=== PATIENT | male | born 1990 | race Caucasian/White ===

== ENCOUNTER 2018-08-31 21:25 | Emergency (ER) | payer SELFPAY ==
[2018-08-31 21:29] VITALS: BP 162/93; PULSE 106; RESP 32; TEMP 36.2; O2SAT 93; BMI 41.7
--- NOTE | 2018-08-31 21:37 | ED.RN ---
CALLED FOR EKG PER RN REQUEST, PULLED OLD EKGS FOR
--- NOTE | 2018-08-31 21:45 | EKG12_ITS ---
Test Reason : SOB Blood Pressure : / mmHG Vent. Rate : 078 BPM Atrial Rate : 078 BPM P-R Int : 128 ms QRS Dur : 094 ms QT Int : 378 ms P-R-T Axes : 049 087 054 degrees QTc Int : 430 ms Normal sinus rhythm Normal ECG Confirmed by KAMILAH SAMS, LINH ([id number]), editor producer TYRA BRAXTON ([id number]) on 09/02/2018 3:29:14 PM Referred By: Confirmed By:LINH TRIANA MD
[2018-08-31 21:52] VITALS: PULSE 79; RESP 18
[2018-08-31] MEDS: Ipratropium/Albuterol Sulfate 3 ML AMPUL.NEB INHALATION (21:54)
[2018-08-31] MEDS: Albuterol 2.5 MG/3 ML VIAL.NEB. INHALATION ×4 (21:54→23:29)
[2018-08-31 22:00] VITALS: PULSE 80; RESP 16
[2018-08-31 22:01] VITALS: O2SAT 100
--- NOTE | 2018-08-31 22:10 | RAD_ITS ---
STUDY: X-RAY CHEST REASON FOR EXAM: Male, 27 years old. Dyspnea, cough TECHNIQUE: Frontal and lateral views COMPARISON: None. FINDINGS: The lungs are clear and expanded. There is no demonstrated pleural abnormality. Normal size heart. Normal mediastinum and pee. Normal visualized pulmonary arteries. Normal visualized aortic arch and descending thoracic aorta. Normal visualized thoracic spine. Normal visualized ribs, clavicles, and shoulders. There is no demonstrated abnormality of the visualized soft tissue structures of the upper abdomen. RAD/Chest PA and Lateral IMPRESSION: Normal x-ray examination of the chest. Electronically Signed: Jair Ortiz DO at 22:29 EST Tel [phone], Service support ,
--- NOTE | 2018-08-31 23:24 | ED.VISSUMM ---
- ER Visit Summary Date of Service: 08/31/18 Chief Complaint: Shortness of breath History of Present Illness: The patient is a 27 M who states this morning he began to have coughing fits. He is a smoker. He does not have a history of asthma or COPD. He also has a history of bipolar disorder. No significant rhinorrhea or fevers. He states that suddenly tonight he went to a coughing fit at night just cannot catch his breath. Physical Examination: Afebrile patient is tachycardic and tachypneic. Pulse ox 93% on room air Gen: Well-nourished well-developed Head: Normocephalic atraumatic Eyes: Perrl EOMI ENT: TMs clear no rhinorrhea moist mucous membranes Neck: Supple no lymphadenopathy no JVD nontender CVS: Regular rate rhythm no murmurs normal S1-S2 Respiratory: Hyperventilating. Diminished breath sounds bilaterally chest nontender Abdomen: Soft nontender nondistended normal bowel sounds no masses Back: Nontender Extremity: Nontender no edema Skin: Normal color no rash Neuro: alert orientated ?3 CN II-XII intact normal strength sensation reflexes gait cerebellar Psych: Anxious Test Results: Chest x-ray negative. EKG normal sinus rhythm at a rate 78 Emergency Department Course and Treatment: Patient received breathing treatments and prednisone. His chest x-ray is clear. Repeat lung auscultation shows significantly improved aeration. There is faint expiratory wheeze. I am going to prescribe albuterol he has a nebulizer system that belongs to his significant other. Also write for some prednisone. Early follow-up return if worsening or concerns Impression: 1. Acute bronchospasm This note was generated with [employer] dictation software. It may contain incorrect words, spelling, and punctuation that were not noted in review of the chart prior to signing ED Disposition - Plan for ED Patient: Disposition: Home or Assisted Living Chief Complaint: Shortness of Breath Instructions: ED Wheezing Prescriptions: Albuterol Aerosols [Ventolin Aerosols] 2.5 mg INHALATION Q4H PRN #25 vial Albuterol Inhaler [Ventolin Hfa] 2 puff INHALATION Q4H PRN PRN #1 inhaler PRN Reason: Wheezing Prednisone [Deltasone] 60 mg PO DAILY #15 tab Referrals: Flory Camarillo MD [STAFF PHYSICIAN] - 3-5 Days if not improving
[2018-08-31 23:30] VITALS: PULSE 78; RESP 18
[2018-09-01] MEDS: predniSONE 20 MG Tablet 60 MG PO (00:12)
[2018-09-01 00:14] VITALS: PULSE 96; O2SAT 96
== END 2018-09-01 00:19 | disposition home or self-care (01) ==
PROVIDERS: Emergency Provider Emergency Medicine
DX: J98.01 Acute bronchospasm (principal); F17.200 Nicotine dependence, unspecified, uncomplicated
CPT/HCPCS: 71046; 93005; 94640; 99283; A4216

== ENCOUNTER 2018-11-25 20:37 | Emergency (ER) | payer MEDICAID, SELFPAY ==
[2018-11-25 20:38] VITALS: BP 143/84; PULSE 87; RESP 18; TEMP 36.6; O2SAT 96; BMI 37.5
--- NOTE | 2018-11-25 20:40 | RAD_ITS ---
STUDY: X-RAY - RIGHT KNEE REASON FOR EXAM: Male, 27 years old. Pain TECHNIQUE: 4 view(s) of the knee. COMPARISON: None. FINDINGS: There is no evidence of fracture or dislocation. There are no significant degenerative changes. There are no radiodense foreign bodies. RAD/Knee 4 or More Views IMPRESSION: No fracture or dislocation. Electronically Signed: Charan Matos, at 21:50 EDT Tel , Service support ,
--- NOTE | 2018-11-25 22:11 | ED.VISSUMM ---
- ER Visit Summary Date of Service: 11/25/18 Chief Complaint: Right knee pain History of Present Illness: The patient is a 27 M nontraumatic right knee pain after waking from a nap today. Started working for the past 3 days on his feet. No climbing her steps. Denies history of similar. No medicines taken. No history of gastric ulcers or kidney injury. Reports feels like bone is grinding. Physical Examination: General: Alert and oriented ?3, no acute distress HEENT: Normocephalic, atraumatic. Moist mucosa membranes Neck: supple, nontender. Cardiovascular: Regular rate and rhythm, no murmurs Respiratory: Normal breath sounds, symmetric, no distress Abdomen: Soft, nontender, nondistended Extremities: no edema, pulses intact ?4. Right lower extremity: Negative varus and valgus of the knee. Knee extensor intact. Positive patellar grind. Neuro: no focal neurological deficits. Test Results: Right knee x-ray: No acute process Emergency Department Course and Treatment: Knee x-ray negative. Discussed patellofemoral syndrome with positive patellar grind. He started on ibuprofen. Follow-up given as an outpatient with PCP. Treatment Plan: [] Disposition: Discharge Impression: Right knee pain with patellofemoral syndrome This note was generated with [employer] dictation software. It may contain incorrect words, spelling, and punctuation that were not noted in review of the chart prior to signing ED Disposition - Plan for ED Patient: Disposition: Home or Assisted Living Diagnosis: Right knee pain, Patellofemoral syndrome of right knee Instructions: ED Knee Pain UKO Prescriptions: Ibuprofen 600 mg PO Q6H PRN PRN #20 tablet PRN Reason: Pain Referrals: Care Physician,No Primary [Primary Care Provider] - Brittney Mcclendon MD [COURTESY STAFF PHYSICIAN] - 5-7 Days Additional Instructions: Right knee pain with concerns of patellofemoral syndrome. Use ibuprofen as needed. Follow-up as an outpatient.
--- NOTE | 2018-11-25 22:15 | ED.DCSUM_ITS ---
- ER Visit Summary Date of Service: 11/25/18 Chief Complaint: Right knee pain History of Present Illness: The patient is a 27 M nontraumatic right knee pain after waking from a nap today. Started working for the past 3 days on his feet. No climbing her steps. Denies history of similar. No medicines taken. No history of gastric ulcers or kidney injury. Reports feels like bone is grinding. Physical Examination: General: Alert and oriented ?3, no acute distress HEENT: Normocephalic, atraumatic. Moist mucosa membranes Neck: supple, nontender. Cardiovascular: Regular rate and rhythm, no murmurs Respiratory: Normal breath sounds, symmetric, no distress Abdomen: Soft, nontender, nondistended Extremities: no edema, pulses intact ?4. Right lower extremity: Negative varus and valgus of the knee. Knee extensor intact. Positive patellar grind. Neuro: no focal neurological deficits. Test Results: Right knee x-ray: No acute process Emergency Department Course and Treatment: Knee x-ray negative. Discussed pat ellofemoral syndrome with positive patellar grind. He started on ibuprofen. Follow-up given as an outpatient with PCP. Treatment Plan: [] Disposition: Discharge Impression: Right knee pain with patellofemoral syndrome This note was generated with [employer] dictation software. It may contain incorrect words, spelling, and punctuation that were not noted in review of the chart prior to signing ED Disposition - Plan for ED Patient: Disposition: Home or Assisted Living Diagnosis: Right knee pain, Patellofemoral syndrome of right knee Instructions: ED Knee Pain UKO Prescriptions: Ibuprofen 600 mg PO Q6H PRN PRN #20 tablet PRN Reason: Pain Referrals: Care Physician,No Primary [Primary Care Provider] - Brittney cMclendon MD [COURTESY STAFF PHYSICIAN] - 5-7 Days Additional Instructions: Right knee pain with concerns of patellofemoral syndrome. Use ibuprofen as needed. Follow-up as an outpatient.
[2018-11-25] MEDS: Ibuprofen 600 MG Tablet PO (22:23)
[2018-11-25 22:29] VITALS: PULSE 72; RESP 16; O2SAT 97
== END 2018-11-25 22:31 | disposition home or self-care (01) ==
PROVIDERS: Emergency Provider Emergency Medicine
DX: M25.561 Pain in right knee (principal); M22.2X1 Patellofemoral disorders, right knee
CPT/HCPCS: 73564; 99283

== ENCOUNTER 2018-11-30 04:55 | Emergency (ER) | payer MEDICAID, SELFPAY ==
[2018-11-30 04:56] VITALS: BP 159/90; PULSE 79; RESP 16; TEMP 36.7; O2SAT 98; BMI 40.8
--- NOTE | 2018-11-30 05:27 | RAD_ITS ---
STUDY: X-RAY - MANDIBLE (COMPLETE) REASON FOR EXAM: Male, 27 years old. Pain TECHNIQUE: 5 view(s) of the mandible were obtained. COMPARISON: None. FINDINGS: Normal mandible. Normal visualized right temporomandibular joint. Normal visualized left temporomandibular joint. The remaining visualized osseous structures are normal. The soft tissue structures are unremarkable. RAD/Mandible Min 4 Views IMPRESSION: Normal x-ray examination of the mandible. Electronically Signed: Salvador Basilio MD at 6:00 EDT , Service support ,
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
--- NOTE | 2018-11-30 05:29 | ED.DEP ---
ED Disposition - Plan for ED Patient: Disposition: Home or Assisted Living Instructions: ED Contusion Face Referrals: Alex Roldan MD [STAFF PHYSICIAN] - 1 Week if not improving Additional Instructions: Ice to jaw to decrease pain and swelling. Motrin for pain and inflammation. If not improving follow-up.
== END 2018-11-30 05:58 | disposition home or self-care (01) ==
PROVIDERS: Emergency Provider Emergency Medicine
DX: S00.531A Contusion of lip, initial encounter (principal); S00.83XA Contusion of other part of head, initial encounter; Z72.0 Tobacco use; W50.0XXA Accidental hit or strike by another person, initial encounter; Y93.89 Activity, other specified; Y92.009 Unspecified place in unspecified non-institutional (private) residence as the place of occurrence of the external cause; Y99.8 Other external cause status
CPT/HCPCS: 70110; 99282

== ENCOUNTER 2018-12-01 12:13 | Emergency (ER) | payer MEDICAID, SELFPAY ==
[2018-11-30 04:56] VITALS: BMI 40.8
[2018-12-01] VITALS (7 sets, daily range): BP systolic 128–191; BP diastolic 86–100; PULSE 93–99; RESP 16–18; TEMP 36.3; O2SAT 96–100; BMI 38.5
[2018-12-01] MEDS: MethylPREDNISolone 125 MG/2 ML Vial IV (12:42)
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
--- NOTE | 2018-12-01 13:49 | ED.DEP ---
ED Disposition - Plan for ED Patient: Instructions: ED Drug React Allergic Prescriptions: Epi Pen (for allergic rxn) 0.3 mg IM X1 #2 syringe Prednisone 10 mg PO UD #33 tab Famotidine [Pepcid] 20 mg PO BID #10 tab DiphenhydrAMINE [Benadryl] 25 mg PO TID 5 Days #15 cap Clindamycin [Cleocin] 300 mg PO 4X/DAY #80 cap Referrals: Tierney Mcdaniels [NON-STAFF] -
== END 2018-12-01 16:21 | disposition home or self-care (01) ==
PROVIDERS: Emergency Provider Emergency Medicine
DX: T88.6XXA Anaphylactic reaction due to adverse effect of correct drug or medicament properly administered, initial encounter (principal); T37.0X5A Adverse effect of sulfonamides, initial encounter; Z72.0 Tobacco use
CPT/HCPCS: 96372; 96374; 96375; 99285; J7030; A4216; J3490

== ENCOUNTER 2018-12-05 04:12 | Emergency (ER) | payer MEDICAID, SELFPAY ==
[2018-12-01 12:13] VITALS: BMI 38.5
[2018-12-05 04:13] VITALS: BP 181/93; PULSE 78; RESP 16; TEMP 36.9; O2SAT 98; BMI 40.2
[2018-12-05] MEDS: 0.9% Normal Saline 1,000 ML 1000 ML IV (04:39)
[2018-12-05] MEDS: Ketorolac 30 MG/ML Syringe IV (04:39)
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
[2018-12-05] MEDS: Penicillin Vk 250 MG Tablet 500 MG PO (05:32)
[2018-12-05 05:36] VITALS: BP 144/86; PULSE 87; RESP 20; O2SAT 97
== END 2018-12-05 05:37 | disposition home or self-care (01) ==
PROVIDERS: Emergency Provider Emergency Medicine
DX: J02.9 Acute pharyngitis, unspecified (principal); Z72.0 Tobacco use
CPT/HCPCS: 87070; 87880; 96361; 96374; 96375; 99284; J7030; A4216

== ENCOUNTER 2018-12-07 22:47 | Emergency (ER) | payer MEDICAID, SELFPAY ==
[2018-12-07 22:47] VITALS: BP 212/113; PULSE 102; RESP 18; TEMP 36.7; O2SAT 97; BMI 38.5
--- NOTE | 2018-12-07 22:58 | ED.VIS.GEN ---
History of Present Illness Chief Complaint: Headache Informant: Patient, Significant Other Onset: Today Context: Sudden Onset - Headache noted upon awakening this morning Timing: Continuous Quality: Pain Location: Central forehead to the occiput Current Severity: Moderate Maximum Severity: Severe Worsened by: Right Relieved by: Nothing Associated Symptoms: Nausea vomiting, recent diagnosis strep exudative tonsillitis Narrative: Patient is a 27-year-old male who presents with headache that he noted upon awakening. He does report nausea vomiting. He does report sore throat. He denies rash. He states the back of his head hurts. He was seen on December 04 and diagnosed with strep pharyngitis. He was treated with antibiotics. He states he is compliant with the antibiotics. He has no history of migraine headaches. - Past Medical History (1) Bipolar 1 disorder Status: Acute (2) Polysubstance (including opioids) dependence w/o physiol dependence Status: Acute Past Medical History - Allergies and Home Meds Allergies/Adverse Reactions: Allergies sulfamethoxazole [From Bactrim] Allergy (Verified 12/07/18 22:50) Hives trimethoprim [From Bactrim] Allergy (Verified 12/07/18 22:50) Hives iodine Adverse Reaction (Verified 12/07/18 22:50) Rash Primary Care Physician: Care Physician,No Primary [NON-STAFF] - Prior records reviewed: Yes - December 04 visit and diagnosis Surgical History: no surgical history Lives: Spouse/ Significant Other Smoking Status: Current every day smoker Drugs: - - Per old records polysubstance abuse Review of Systems General: Reports: Chills, Fever, Malaise, Subjective, Sweats Eyes: Denies: Visual changes - bilaterally, Blurred Vision - bilaterally, Diplopia ENT: Reports: Sore throat. Denies: Bilateral ear pain, Rhinorrhea Cardiovascular: Denies: Chest pain, Palpitations Respiratory: Denies: Dyspnea, Cough, Dyspnea on exertion Gastrointestinal: Reports: Nausea, Vomiting. Denies: Abdominal pain, Diarrhea, Melena, Hematochezia Genitourinary: Denies: Dysuria, Hematuria, Frequency Musculoskeletal: Denies: Back pain, Extremity Pain Skin: Denies: Rash, Wounds Neurological: Denies: Headache, Weakness, Numbness Hematologic: Denies: Easy bruising, Easy bleeding Allergy: Denies: Uticaria, Swelling of the mouth Physical Exam Vital Signs/Narrative: Vital Signs Temp Pulse Resp BP Pulse Ox 12/07/18 22:47 98.1 F 102 H 18 212/113 H 97 Inital Vital Signs reviewed: Yes General: Well nourished, Well developed, Obese, - - patient lying on the cot with the room lights off. Head: Normocephalic, Atraumatic Eyes: Perrl, EOMI, - - Funduscopic exam reveals normal cup-to-disc ratio. There is no papilledema. Unable to determine if he has venous pulsation.. Negative for: Pale conjunctiva, Scleral icterus ENT: Moist mucous membranes, No rhinorrhea, TM's clear, - - Exudative tonsillitis Neck: Supple, Nontender, No JVD. Negative for: No lymphadenopathy Cardiovascular: Regular rate, Regular rhythm, No murmurs, Normal S1, Normal S2 Respiratory: No distress, CTA bilaterally, Chest nontender Abdomen: Soft, Nontender, Nondistended, Normal bowel sounds Back: Nontender, Normal Inspection Extremities: Nontender, No edema Skin: Normal color, No rash. Negative for: Cyanosis, Diaphoresis, Jaundice, Rash Neurological: Alert, Oriented x3, Cranial nerves II-XII grossly intact, Normal Strength, Normal Sensation, Normal DTR - DTRs 2+ upper and lower extremity and symmetric, Normal Gait Psychological: Normal affect Diagnostic/Tx/Re-eval - Medical Decision Making Nurse verifying blood pressure. If blood pressure is elevated will obtain CT of the head and blood work. Will medicate with IV Toradol, Benadryl and Reglan. Patient's blood pressure has improved but is still elevated. He is presently asleep with a blood pressure of 162/111. He was started on antihypertensive medication. He has an appointment to be seen by Dr. De Jesus later this morning. ED Disposition - Plan for ED Patient: Disposition: Home or Assisted Living Diagnosis: Hypertension new diagnosis, Cephalgia Instructions: ED Cephalgia Unspecified, ED Hypertension New Begin Tx Prescriptions: Lisinopril [Prinivil] 10 mg PO DAILY #30 tab Referrals: Care Physician,No Primary [NON-STAFF] - Ang De Jesus MD [Primary Care Provider] - Keep Valeria appointment
[2018-12-07 23:06] VITALS: BP 176/103
[2018-12-07] MEDS: 0.9% Normal Saline 1,000 ML 999 ML IV (23:10)
[2018-12-07] MEDS: DiphenhydrAMINE 50 MG/ML Syringe 25 MG IV (23:10)
[2018-12-07] MEDS: Ketorolac 30 MG/ML Syringe 15 MG IV (23:11)
[2018-12-07] MEDS: Metoclopramide 10 MG/2 ML Vial IV (23:11)
[2018-12-07 23:17] VITALS: BP 164/110
[2018-12-08] MEDS: Lisinopril 10 MG Tablet PO (00:45)
[2018-12-08 00:48] VITALS: BP 163/106; PULSE 84; RESP 16; O2SAT 94
== END 2018-12-08 00:48 | disposition home or self-care (01) ==
PROVIDERS: Emergency Provider Emergency Medicine; Family Provider Internal Medicine; PCP Internal Medicine
DX: R51 Headache (principal); I10 Essential (primary) hypertension; F17.200 Nicotine dependence, unspecified, uncomplicated; E66.9 Obesity, unspecified
CPT/HCPCS: 96361; 96374; 96375; 99284; J7030; A4216

== ENCOUNTER 2019-09-02 09:31 | Emergency (ER) | payer MEDICAID, SELFPAY ==
[2019-09-02 09:32] VITALS: BP 154/84; PULSE 87; RESP 20; TEMP 36.8; O2SAT 98; BMI 39.7
--- NOTE | 2019-09-02 10:05 | ED.DCSUM_ITS ---
History of Present Illness Chief Complaint: Abd Pain Informant: Patient Onset: Days Context: Gradual Onset Timing: Continuous Narrative: Patient is a 28-year-old male with no significant past medical history presenting with hematemesis, abdominal pain and cough. Patient states for the past 2 weeks or so he has had a cold with persistent cough. He states sometimes his coughing fits are so bad that he throws up or almost passes out. Cough is been nonproductive. He notes over the past week he has had worsening epigastric abdominal pain. Patient was seen at [facility] yesterday where he was told that he has an ulcer. He was given a GI cocktail and prescribed antacid medication. He did not have any blood work or imaging done at that time. He woke up at 3 AM this morning and vomited about 1/4 cup of bright red blood. He states it was not any clots in it. He is not vomited since. He notes for the past month every morning when he wakes up he has been vomiting but normally is viral. He states he feels better when he does vomit with his belly pain. He notes for the past week he has had black loose stools. He did take Pepto-Bismol at 4 AM this morning but has had not had any prior. Patient denies any other complaints at this time. Past Medical History - Allergies and Home Meds Allergies/Adverse Reactions: Allergies sulfamethoxazole [From Bactrim] Allergy (Verified 09/02/19 09:34) Hives trimethoprim [From Bactrim] Allergy (Verified 09/02/19 09:34) Hives iodine Adverse Reaction (Verified 09/02/19 09:34) Rash Primary Care Physician: Kurtis Webb MD [NON-STAFF] - Sebas Ibanez MD [NON-STAFF] - Past Medical History: None Surgical History: no surgical history Smoking Status: Current every day smoker Review of Systems General: Denies: Chills, Fever, Sweats Eyes: Denies: Visual changes - bilaterally, Diplopia ENT: Denies: Rhinorrhea, Sore throat Cardiovascular: Denies: Chest pain, Palpitations Respiratory: Reports: Cough. Denies: Dyspnea, Dyspnea on exertion Gastrointestinal: Reports: Abdominal pain, Nausea, Vomiting, Melena, Hematochezia. Denies: Diarrhea Genitourinary: Denies: Dysuria, Hematuria, Frequency Musculoskeletal: Denies: Back pain, Extremity Pain Skin: Denies: Rash, Wounds Neurological: Denies: Headache, Weakness, Numbness Physical Exam Vital Signs/Narrative: Vital Signs Temp Pulse Resp BP Pulse Ox 09/02/19 09:32 98.3 F 87 20 H 154/84 H 98 Inital Vital Signs reviewed: Yes General: Well nourished, Well developed, No Acute Distress Head: Normocephalic, Atraumatic Eyes: Perrl, EOMI. Negative for: Pale conjunctiva ENT: Moist mucous membranes, No rhinorrhea, TM's clear Neck: Supple, Nontender Cardiovascular: Regular rate, Regular rhythm, No murmurs Respiratory: No distress, CTA bilaterally, Chest nontender Abdomen: Soft, Nontender, Nondistended, Normal bowel sounds Rectal: Guaiac negative, Nontender Back: Nontender, Normal Inspection Extremities: Nontender, No edema Skin: Normal color, No rash. Negative for: Pallor Neurological: Alert, Oriented x3, Cranial nerves II-XII grossly intact, Normal Strength, Normal Sensation Psychological: Normal affect, Normal Mood Diagnostic/Tx/Re-eval Chest X-Ray - ED: 2 View, Read by ED Physician, Read by Radiologist, No Acute Disease Clinical Impression(s) from Imaging Studies Chest X-Ray 09/02/19 10:28 IMPRESSION: No acute cardiopulmonary findings Electronically Signed: Brenden Yeboah DO at 11:22 EST Tel , Service support , Laboratory Data 09/02/19 09/02/19 10:12 10:12 WBC 9.8 RBC 4.94 Hgb 14.8 Hct 43.0 MCV 87.0 MCH 30.0 MCHC 34.4 RDW Std Deviation 39.1 RDW Coeff of Anthony 12.4 Plt Count 243 MPV 10.0 Immature Gran % (Auto) 0.200 Neut % (Auto) 46.7 L Lymph % (Auto) 39.6 [place] % (Auto) 7.5 Eos % (Auto) 5.2 H Baso % (Auto) 0.8 Absolute Neuts (auto) 4.6 Absolute Lymphs (auto) 3.89 Nucleated RBC % 0 Sodium 140 Potassium 3.8 Chloride 107 Carbon Dioxide 26.0 Anion Gap 7 BUN 14 Creatinine 0.90 Estim Creat Clear Calc 147.35 Est GFR (MDRD) Af Amer 129 Est GFR (MDRD) Non-Af 107 BUN/Creatinine Ratio 15.5 Glucose 127 H Calcium 9.4 Total Bilirubin 0.40 AST 21 ALT 50 Alkaline Phosphatase 97 Total Protein 7.2 Albumin 3.7 Globulin 3.5 Albumin/Globulin Ratio 1.1 Lipase 173 - Medical Decision Making Patient is evaluated for abdominal pain as well as an episode of hematemesis. Rectal exam is negative for melena and is occult negative. His abdomen is soft and nontender. He was told he likely has gastritis versus ulcers yesterday. I agree with this. I did check labs this time which are all grossly normal. He does not have signs of a pancreatitis. Chest x-ray does not show pneumonia. This is checked as he has had a cough. Likely he has bronchitis that is clearing up. He states his cough has been improving. Patient is started on sucralfate in addition to the antacids he is already on. Patient has had a lot of stress with the daughter in the NICU which is likely contributing to his ulcer. He is hemodynamically stable with a normal Hemoccult. I do not think he needs admission for evaluation of this episode of hematemesis. In addition x- ray does not show any free air underneath the diaphragm. His abdomen is soft and I do not think further imaging is indicated. Patient is counseled on signs and symptoms requiring return to the emergency room. Patient verbalizes agreement and understand this plan. Patient discharged home in stable and improved condition. ED Disposition - Plan for ED Patient: Disposition: Home or Assisted Living Diagnosis: Hematemesis of unknown cause, Abdominal pain, Bronchitis Instructions: GASTRITIS vs. ULCER, ABDOMINAL PAIN, Unkown Cause, (Male) Prescriptions: Sucralfate [Carafate] 1 gm PO 4X/DAY #28 tab Prescription Printed Referrals: Kurtis Webb MD [NON-STAFF] - Sebas Ibanez MD [NON-STAFF] - Additional Instructions: I agree with the doctor yesterday that likely you have a stomach ulcer that is causing your pain. It is possibly bleeding which is why throughout blood today. You do not have any signs of blood in your stool today. Continue taking the antacid as prescribed yesterday and also start taking the medication prescribed today. It will help with this. Please follow-up with the GI doctor as well as her primary care doctor for further evaluation. Return to emergency with any worsening symptoms. At this time I think you are safe to go home.
[2019-09-02] MEDS: Famotidine 200 MG/20 ML MDV 20 MG in 0.9% Normal Saline (Pres. free 8 ML 300 MG IV (10:14)
[2019-09-02] MEDS: Ondansetron 4 MG/2 ML Vial IV (10:22)
[2019-09-02] MEDS: 0.9% Normal Saline 1,000 ML 1000 ML IV (10:22)
[2019-09-02 10:26] LABS: Absolute Lymphocyte Count 3.89 X10^3/uL (0.83-4.51); Absolute Neutrophil Count 4.6 X10^3/uL (2.0-7.7); Basophil# 0.08 X10^3/uL; Basophil% 0.8 % (0-1); Eosinophil# 0.51 X10^3/uL; Eosinophils% 5.2 % (0-5); Hemoglobin 14.8 g/dL (13.0-16.5); Lymphocyte # 3.89 X10^3/ul (4.0); Lymphocyte % 39.6 % (19-41); Mean Corp Hgb Conc 34.4 g/dL (32-36); Monocyte# 0.74 X10^3/uL; Monocyte% 7.5 % (0-10); NRBC Flagged by Analyzer 0 % (0-5); Neutrophil # 4.59 X10^3/uL (2.7-7.7); Neutrophil % 46.7 % (47-70); Platelet Count 243 K/mm3 (150-450); RBC Distribution Width CV 12.4 % (11.6-14.6); RBC Distribution Width SD 39.1 fl (35.1-43.9); Red Blood Count 4.94 M/mm3 (4.6-6.2); White Blood Count 9.8 K/mm3 (4.4-11.0)
--- NOTE | 2019-09-02 10:28 | RAD_ITS ---
STUDY: X-RAY CHEST REASON FOR EXAM: Male, 28 years old. CHEST PAIN, SOB, AND COUGH X 1 WEEK. TECHNIQUE: PA and lateral views of the chest. COMPARISON: 08/31/2018. FINDINGS: Cardiac silhouette unremarkable. Pulmonary vascularity unremarkable. Aorta unremarkable. No focal patchy airspace opacities. No pleural effusions. Upper abdomen unremarkable. Osseous structures intact. No pneumothorax. RAD/Chest PA and Lateral IMPRESSION: No acute cardiopulmonary findings Electronically Signed: Brenden Yeboah DO at 11:22 EST Tel , Service support ,
[2019-09-02 10:52] LABS: ALB/GLOB Ratio 1.1 RATIO (0.9-2.4); AST(SGOT) 21 U/L (15-37); Alanine Aminotransfer ALT/SGPT 50 U/L (16-61); Albumin, Serum 3.7 g/dL (3.2-5.0); Alkaline Phosphatase 97 U/L (45-117); Anion Gap 7 (5-15); BUN 14 mg/dL (7-18); BUN/Creat Ratio 15.5 RATIO (10-20); Calcium,Total 9.4 mg/dL (8.5-10.1); Chloride 107 mmol/L (98-107); EST Glomerular Filtration Rate 107 mL/min (>60); Est Glom Filt Rate - Afr Amer 129 mL/min (>60); Estimated Creatinine Clearance 147.35 ml/min; Globulin 3.5 g/dL (2.2-4.2); Glucose 127 mg/dL (74-106); Lipase 173 U/L (73-393); Potassium 3.8 mmol/L (3.5-5.1); Protein, Total 7.2 g/dL (6.4-8.2); Sodium Level 140 mmol/L (136-145)
[2019-09-02 12:34] VITALS: BP 150/90; PULSE 61; RESP 14; O2SAT 98
== END 2019-09-02 12:35 | disposition home or self-care (01) ==
PROVIDERS: Emergency Provider Emergency Medicine
DX: K92.0 Hematemesis (principal); R10.13 Epigastric pain; J40 Bronchitis, not specified as acute or chronic; F17.200 Nicotine dependence, unspecified, uncomplicated
CPT/HCPCS: 71046; 80053; 82274; 83690; 85025; 96361; 96374; 99283; J7030; A4216; J2405; J3490

== ENCOUNTER 2019-11-07 21:33 | Emergency (ER) | payer MEDICAID, SELFPAY ==
[2019-11-07 21:34] VITALS: BP 141/86; PULSE 77; RESP 16; TEMP 36.9; O2SAT 97; BMI 41.8
[2019-11-07 22:30] VITALS: RESP 16
--- NOTE | 2019-11-07 23:44 | ED.VISSUMM ---
- ER Visit Summary Date of Service: 11/07/19 Chief Complaint: Sore throat loss of voice History of Present Illness: The patient is a 28 M patient in past medical or surgical history. Patient states he had a 3-day history of laryngitis. No nausea, vomiting diarrhea no cough. No fever. No shortness of breath. Physical Examination: Young male no acute distress vital signs are stable afebrile. Pulse ox 97% on room air no signs hypoxia. H EENT exam unremarkable. Posterior pharynx normal. No erythema or exudate. No trouble swallowing or breathing. No drooling or stridor. Neck nontender no lymphadenopathy. Trachea midline. Nontender. Lungs clear to auscultation. Heart regular rhythm. No murmur. Abdomen soft nontender. Extremities moves all 4. Skin no rashes. Neurologic exam normal. Test Results: None Emergency Department Course and Treatment: History and exam are consistent with viral laryngitis. Patient needs no testing. Lungs are clear. Treatment Plan: Rest his voice. Warm salt water gargling. Follow-up as needed. Disposition: Discharge Impression: Viral syndrome with laryngitis This note was generated with [employer] dictation software. It may contain incorrect words, spelling, and punctuation that were not noted in review of the chart prior to signing ED Disposition - Plan for ED Patient: Referrals: Care Physician,No Primary [Primary Care Provider] -
--- NOTE | 2019-11-07 23:46 | ED.DEP ---
ED Disposition - Plan for ED Patient: Disposition: Home or Assisted Living Instructions: VIRAL SYNDROME (Adult), Laryngitis Referrals: Alex Roldan MD [STAFF PHYSICIAN] - 1 Week if not improving Additional Instructions: Plenty of fluids and rest. Warm salt water gargling. Chloraseptic spray. Follow-up as needed. Rest your voice.
[2019-11-08] VITALS: PULSE 79; RESP 22; O2SAT 97
--- NOTE | 2019-11-08 | ED.RN ---
THIS NURSE REVIEWED D/C INSTRUCTIONS WITH PT. PT VERBALIZED UNDERSTANDING OF INSTRUCTIONS. PT DENIES FURTHER NEEDS OR QUESTIONS AT THIS TIME. PT AMBULATES FROM ROOM ON OWN WITHOUT ASSISTANCE FROM STAFF
== END 2019-11-08 00:02 | disposition home or self-care (01) ==
LOC: ED 23:58
PROVIDERS: Emergency Provider Emergency Medicine
DX: J04.0 Acute laryngitis (principal); B34.9 Viral infection, unspecified; Z72.0 Tobacco use
CPT/HCPCS: 99282